=== PATIENT | female | born 1940 | race Caucasian/White ===

== ENCOUNTER → 2017-12-04 | Outpatient (CLI) | payer OTHER ==
[~2017-12-04] MED LIST: Accuneb0.63 MG/3; CHOL10002; DAILY MULTIPLE1 EACH; FISH1000; LEVSOD75; Lecithin-191200 MG
== END | disposition home or self-care (01) ==
LOC: LAB SHORT 14:35 → LAB EV 14:35
DX: R30.0 Dysuria (principal)
CPT/HCPCS: 87086

== ENCOUNTER → 2019-01-09 | Outpatient (CLI) | payer OTHER | END | disposition home or self-care (01) | LOC: PLD 08:12 → LAB SHORT 08:12 | DX: D48.5 Neoplasm of uncertain behavior of skin (principal) | CPT/HCPCS: 88304 ==